=== PATIENT | female | born 1965 | race Caucasian/White ===

== ENCOUNTER → 2017-02-27 | Outpatient (CLI) | payer BC ==
[~2017-02-27] MED LIST: AVPAK AZITHROM250 MG PO; BENZONATATE200 MG PO; CARVEDILOL 1212.5 MG PO; GLIPIZIDE 5MG TA5 MG PO; HYDROCHLOROTH12.5 M1 PO; HYZAAR 50-12.51 EACH PO; LEVOFLOXACIN 5500 MG PO; LOSARTAN POTASS1 TAB PO; MAXZIDE 25 MG-31 TAB PO; METFORMIN HCL1000 MG PO; NEXIUM40 MG PO; PREDNISONE 20MG20 MG PO; PREMPRO 0.3 MG-1 TAB PO; PROMETHAZINE D118 ML PO; PULMICORT180 MCG/AC IH; SYNTHROID 0.0.125 MG PO; [UNRECOGNIZED DRUG - OTHER] INH
--- NOTE | 2017-02-27 17:02 | RADIOLOGY REPORT PS360 ---
PROCEDURE: 2-D M-mode and color Doppler study INDICATIONS FOR THE TEST: Chest pain + COPD Heart Murmur+ Tobacco Smoking Palpitations Fatigue Syncope Edema+ Hypertension+Diabetes Mellitus+ Rheumatic Fever SOB+LIANG Obesity Hyperlipidemia+ Family History HD Additional History PATIENT INFORMATION HEIGHT: 65 WEIGHT:215 GENDER: Female B/P:120/72 2-D/M-MODE INTERPRETATION: 2-D MEASUREMENTS OBSERVED VALUES IN CMS Right Ventricular Dimension (RVDd) 2.1 Interventricular Septum (Thickness)(IVsd) 1.2 Left Ventricular Internal Dimensions(LVIDd) 4.7 Left Ventricular Posterior Wall (Thickness)(LVPWd) 0.8 Aortic Root 2.8 Aortic Cusp Separation 1.9 Left Atrial Dimensions (LAD) 4.1 2D 1. Left atrium is mildly enlarged, left ventricle is normal size, there is mild concentric left ventricular hypertrophy, visually estimated ejection fraction 55% with no obvious regional wall motion abnormality. 2. The right atrium and right ventricle are normal size and contractility. 3. The aortic valve is minimally thickened and fibrosed. 4. The mitral and tricuspid valve are grossly normal. 5. The pulmonic valve is poorly visualized. 6. No significant pericardial effusion noted. DOPPLER INTERROGATION: Doppler interrogation of the aortic, mitral and tricuspid valvular presence of mildly increased aortic out flow velocity, does not represent any significant aortic stenosis, there is no aortic insufficiency. Mild mitral and tricuspid regurgitation., Grade 1 diastolic dysfunction seen with tissue Doppler evidence of raised left atrial pressure. CONCLUSION: 1. Mildly enlarged left atrium, normal left ventricular size, mild concentric left ventricular hypertrophy, visually estimated ejection fraction 55% with no obvious regional wall motion abnormality, grade 1 diastolic dysfunction seen with tissue Doppler evidence of raised left atrial pressure. 2. Mildly increased aortic out flow velocity does not presence of significant aortic stenosis, there is no aortic insufficiency. 3. Mild mitral and tricuspid regurgitation. 4. No significant pericardial effusion noted.
== END ==
LOC: RT 14:19
DX: R07.9 Chest pain, unspecified (principal); R06.00 Dyspnea, unspecified; I11.9 Hypertensive heart disease without heart failure; I25.10 Atherosclerotic heart disease of native coronary artery without angina pectoris; G47.33 Obstructive sleep apnea (adult) (pediatric)

== ENCOUNTER → 2017-03-20 | Outpatient (CLI) | payer BC | LOC: SL 14:53 | DX: R07.9 Chest pain, unspecified (principal); R06.09 Other forms of dyspnea; I25.10 Atherosclerotic heart disease of native coronary artery without angina pectoris; I10 Essential (primary) hypertension; E78.5 Hyperlipidemia, unspecified; R06.83 Snoring; R53.83 Other fatigue; G47.10 Hypersomnia, unspecified; G47.9 Sleep disorder, unspecified; Z82.49 Family history of ischemic heart disease and other diseases of the circulatory system | CPT/HCPCS: G0399-TC ==